=== PATIENT | male | born 1965 | race Caucasian/White ===

== ENCOUNTER 2020-05-15 08:00 | Outpatient (CLI) | payer BC ==
--- NOTE | 2020-05-15 15:50 | XRAY Report ---
PROCEDURE: Lumbar Spine 2 View INDICATIONS: LOW BACK PAIN TECHNIQUE: 3 views of the lumbar spine were acquired. COMPARISON: None FINDINGS: Bones: 5 [id number] vertebrae are present. There is trace retrolisthesis of L1 on L2, L2 on L3 , L3 on L4, L4 on L5. Moderate to severe disc space narrowing is present L1-L2, L2-3, mild mild to mo derate throughout the remainder of the lumbar spine. No there is severe foraminal narrowing at L5-S1, mild L4-5. Nonbridging anterior osteophytes are present most notable at L4. Vertebral body compressi on fractures. No suspicious bony lesions. Soft tissues: Overlying bowel gas pattern is normal. No suspicious soft tissue calcifications. IMPRESSION: Degenerative changes most notable at L5-S1 as above. Reviewed by: Abiola Tillman MD on 05/15/2020 3:49 PM PST Approved by: Abiola Tillman MD on 05/15/2020 3:49 PM PST Station ID: [id number]
== END 2020-05-15 23:59 ==
LOC: DI.S 08:00
PROVIDERS: ATTEND Physician Assistant
DX: M43.16 Spondylolisthesis, lumbar region (principal); M51.36 Other intervertebral disc degeneration, lumbar region; M48.56XA Collapsed vertebra, not elsewhere classified, lumbar region, initial encounter for fracture